=== PATIENT | male | born 1940 | race Caucasian/White ===

== ENCOUNTER 2022-02-28 09:46 | Outpatient (CLI) | payer MEDICARE | END 2022-02-28 09:47 | disposition home or self-care (01) | LOC: CSHRAD 09:46 | PROVIDERS: ATTEND Otolaryngology | DX: R13.10 Dysphagia, unspecified (principal); R63.39 Other feeding difficulties; R93.3 Abnormal findings on diagnostic imaging of other parts of digestive tract | CPT/HCPCS: 74230 ==